=== PATIENT | male | born 1995 | race Caucasian/White ===

== ENCOUNTER 2020-12-03 18:47 | Emergency (ER) | payer OTHER ==
--- NOTE | 2020-12-03 20:26 | CR ---
INDICATION: Thumb laceration TECHNIQUE: Finger radiograph 3 views left 1st COMPARISON: None FINDINGS: Bone: There is an incomplete laceration injury involving the cortex the 1st proximal phalanx. Linear laceration defect is seen along the base of the 1st digit with punctate scattered densities which may be due to foreign bodies. Joint: The metacarpophalangeal and interphalangeal joints are normal in appearance. Soft tissue: Unremarkable. IMPRESSIONS: 1. There is an incomplete laceration injury involving the cortex the 1st proximal phalanx. 2. Linear laceration defect is seen along the base of the 1st digit with punctate scattered densities which may be due to foreign bodies. Dictated by Zac Martínez MD @ 12/03/2020 8:19:33 PM Dictated by: Zac Martínez MD @ 12/03/2020 20:24:33 (Electronically Signed)
[2020-12-03] MEDS ORDERED: Diphtheria,Pertussis(Acell),Tetanus Vaccine 0.5 ML Syringe IM ONE (20:37)
--- NOTE | 2020-12-03 21:18 | EDM.PDOC ---
ED HPI GENERAL MEDICAL PROBLEM - General Chief Complaint: Upper Extremity Injury/Pain Stated Complaint: LACARATED FINGER Time Seen by Provider: 12/03/20 18:52 Source of Information: Reports: Patient History Limitations: Reports: No Limitations - History of Present Illness INITIAL COMMENTS - FREE TEXT/NARRATIVE: HISTORY AND PHYSICAL: History of present illness: Patient is a 25-year-old male who presents emergency department secondary to a laceration to his left thumb he sustained just prior to arrival to the emergency department. Patient reports that he was using a wire wheeler to work on a garage door and reports that he slipped and the graphite grinder ran across his thumb. Patient states that he wrapped the area but did not clean it out. Patient states he is right-hand dominant. Patient is unsure of his tetanus status but believes he is out of date. Patient denies fever, chills, chest pain, shortness of breath, or cough. Denies headache, neck stiff ness, change in vision, syncope, or near syncope. Denies nausea, vomiting, abdominal pain, diarrhea, constipation, or dysuria. Has not noted any blood in urine or stool. Patient has been eating and drinking appropriately. Review of systems: As per history of present illness and below otherwise all systems reviewed and negative. Past medical history: As per history of present illness and as reviewed below otherwise noncontributory. Surgical history: As per history of present illness and as reviewed below otherwise noncontributory. Social history: See social history for further information Family history: As per history of present illness and as reviewed below otherwise noncontributory. Physical exam: General: Patient is alert, oriented, and in no acute distress. Patient sitting comfortably on exam table. Patient's vitals are stable and reviewed by me. HEENT: Atraumatic, normocephalic, pupils equal and reactive bilaterally, negative for conjunctival pallor or scleral icterus, mucous membranes moist, TMs normal bilaterally, throat clear, neck supple, nontender, trachea midline. No drooling or trismus noted. No meningeal signs. No hot potato voice noted. Lungs: Clear to auscultation, breath sounds equal bilaterally, chest nontender. Heart: S1S2, regular rate and rhythm without overt murmur Abdomen: Soft, nondistended, nontender. Negative for masses or hepatosplenomegaly. Negative for costovertebral tenderness. Pelvis: Stable nontender. Genitourinary: Deferred. Rectal: Deferred. Skin: Intact, warm, dry. No lesions or rashes noted. Extremities: The patient's left thumb has a 4 cm laceration across the dorsal aspect of the midshaft of the proximal phalanx. There is a incomplete laceration to the tendon sheath of the extensor tendon of the thumb; not cutting through the tendon. Patient has full active and passive range of motion in the thumb, capillary refill less than 2 seconds with intact sensation of the complete LUE. Otherwise atraumatic, negative for cords or calf pain. Neurovascular unremarkable. Neuro: Awake, alert, oriented. Cranial nerves II through XII unremarkable. Cerebellum unremarkable. Motor and sensory unremarkable throughout. Exam nonfocal. Notes: X-ray shows there is an incomplete laceration injury involving the cortex of the first proximal phalanx. Linear laceration defect is seen along the base of the first digit with punctate scattered densities which may be due to foreign bodies; did not appreciate fb on extensive cleaning / irrigation of laceration. Discussed with patient signs and symptoms that would prompt return to the emergency department. Discussed with patient the importance of follow-up with primary care and hand specialist. Voices understanding and is agreeable to plan of care. Denies any further questions or concerns at this time. Diagnostics: X-ray 2 view left thumb Therapeutics: Irrigation, sutures, tetanus update, thumb splint placed by nursing staff Prescription: Keflex Impression: Left thumb injury / laceration Plan: 1. Take medication as prescribed. You can alternate ibuprofen and Tylenol as directed for pain and discomfort. 2. Follow-up with a hand specialist as discussed. Return to the ED as needed and as discussed. 3. Keep splint on until evaluation by the hand specialist. 4. Keep the area clean and dry. Continue to monitor for signs of infection as discussed. Sutures to be removed in 7-10 days. Definitive disposition and diagnosis as appropriate pending reevaluation and review of above. L thumb Pain Score (Numeric/FACES): 7 - Related Data Allergies Allergy/AdvReac Type Severity Reaction Status Date / Time aspirin Allergy Other Verified 12/03/20 19:49 Home Meds: Home Meds cephALEXin [Keflex] 500 mg PO BID 10 Days #20 cap 12/03/20 [Rx] Past Medical History - Infectious Disease History Infectious Disease History: Reports: Chicken Pox - Past Surgical History HEENT Surgical History: Reports: Adenoidectomy, Tonsillectomy Social & Family History - Tobacco Use Tobacco Use Status *Q: Current Every Day Tobacco User Years of Tobacco use: 2 Packs/Tins Daily: 1 - Recreational Drug Use Recreational Drug Use: No Review of Systems - Review of Systems Review Of Systems: Comprehensive ROS is negative, except as noted in HPI. ED EXAM, GENERAL - Physical Exam Exam: See Below (see dictation) ED TRAUMA EXTREMITY PROCEDURES - Laceration/Wound Repair Left Proximal Dorsal Digit - 1st (Thumb) Lac/Wound Length In cm: 4 (Suturing performed by PA student Chong Gallegos observed and supervised directly by me.) Appearance: Subcutaneous, Linear, Mildly Contaminated Distal NVT: Neuro & Vascular Intact Anesthetic Type: Digital Local Anesthesia - Lidocaine (Xylocaine): 1% Plain Local Anesthetic Volume: Other (8cc) Skin Prep: Chlorhexidine (Hibiciens), Saline Saline Irrigation (cc's): 500 Exploration/Debridement/Repair: Wound Explored, In a Bloodless Field, Explored to Base, No Foreign Material Found Closed With: Sutures Suture Size: 4-0 # of Sutures: 9 Suture Type: Nylon, Interrupted Drain Placement: No Sterile Dressing Applied: Nurse Tetanus Status Addressed: Yes Complications: No Course - Vital Signs Last Recorded V/S: Last Vital Signs Temp 96.5 F L 12/03/20 19:46 Pulse 55 L 12/03/20 19:46 Resp 16 12/03/20 19:46 BP 109/69 12/03/20 19:46 Pulse Ox 98 12/03/20 19:46 - Orders/Labs/Meds Orders: Active Orders 24 hr Category Date Time Status Vaccines to be Administered [RC] PER UNIT ROUTINE Care 12/03/20 20:37 Active DME for Discharge [COMM] Stat Oth 12/03/20 21:19 Ordered Meds: Medications Discontinued Medications Generic Name Dose Route Start Last Admin Trade Name Freq PRN Reason Stop Dose Admin Diphtheria/Tetanus/Acell Pertussis 0.5 ml 12/03/20 20:37 12/03/20 20:44 Diphtheria,Pertussis(Acell),Tetanus Vaccine 0.5 Ml Syringe IM 12/03/20 20:38 0.5 ml .ONCE ONE Administration Lidocaine HCl 10 ml 12/03/20 19:53 12/03/20 20:05 Lidocaine 1% 5 Ml Sdv INJECT 12/03/20 19:54 10 ml ONETIME ONE Administration Departure - Departure Time of Disposition: 21:16 Disposition: Home, Self-Care 01 Clinical Impression: Thumb laceration Qualifiers: Encounter type: initial encounter Damage to nail status: without damage Foreign body presence: without foreign body Laterality: left Qualified Code(s): S61.012A - Laceration without foreign body of left thumb without damage to nail, initial encounter - Discharge Information Prescriptions: cephALEXin [Keflex] 500 mg PO BID 10 Days #20 cap Referrals: PCP,Not In Area [Primary Care Provider] - Forms: ED Department Discharge Additional Instructions: The following information is given to patients seen in the emergency department who are being discharged to home. This information is to outline your options for follow-up care. We provide all patients seen in our emergency department with a follow-up referral. The need for follow-up, as well as the timing and circumstances, are variable depending upon the specifics of your emergency department visit. If you don't have a primary care physician on staff, we will provide you with a referral. We always advise you to contact your personal physician following an emergency department visit to inform them of the circumstance of the visit and for follow-up with them and/or the need for any referrals to a consulting specialist. The emergency department will also refer you to a specialist when appropriate. This referral assures that you have the opportunity for follow-up care with a specialist. All of these measure are taken in an effort to provide you with optimal care, which includes your follow-up. Under all circumstances we always encourage you to contact your private physician who remains a resource for coordinating your care. When calling for follow-up care, please make the office aware that this follow-up is from your recent emergency room visit. If for any reason you are refused follow-up, please contact the [facility] Emergency Department at and asked to speak to the emergency department charge nurse. [facility] [address] [place] [id number] [address] [facility], Hand and Wrist Surgery, Dr. Thomas [address] [place], [place] [address]elie LocoBRISEIDA [id number] PH: [phone] 1. Take medication as prescribed. You can alternate ibuprofen and Tylenol as directed for pain and discomfort. 2. Follow-up with a hand specialist as discussed. Return to the ED as needed and as discussed. 3. Keep splint on until evaluation by the hand specialist. 4. Keep the area clean and dry. Continue to monitor for signs of infection as discussed. Sutures to be removed in 7-10 days. Sepsis Event Note (ED) - Evaluation Sepsis Screening Result: No Definite Risk - Focused Exam Vital Signs: Vital Signs Temp Pulse Resp BP Pulse Ox 12/03/20 19:46 96.5 F L 55 L 16 109/69 98 - My Orders Last 24 Hours: My Active Orders 12/03/20 20:37 Vaccines to be Administered [RC] PER UNIT ROUTINE 12/03/20 21:19 DME for Discharge [COMM] Stat - Assessment/Plan Last 24 Hours: My Active Orders 12/03/20 20:37 Vaccines to be Administered [RC] PER UNIT ROUTINE 12/03/20 21:19 DME for Discharge [COMM] Stat
[2020-12-03] MEDS ORDERED: Cephalexin 500 MG Cap PO ONE (22:27)
[2020-12-03] MEDS ORDERED: Cephalexin 500 MG Cap ONE (22:28)
== END 2020-12-03 22:27 | disposition home or self-care (01) ==
LOC: MW.ED 18:47
DX: S61.012A Laceration without foreign body of left thumb without damage to nail, initial encounter (principal); Z72.0 Tobacco use; Z23 Encounter for immunization; Z88.8 Allergy status to other drugs, medicaments and biological substances; W26.8XXA Contact with other sharp object(s), not elsewhere classified, initial encounter; Y99.0 Civilian activity done for income or pay
CPT/HCPCS: 12002; 73140; 90471; 90715; 99283; A9270

== ENCOUNTER 2021-07-21 08:03 | Emergency (ER) | payer OTHER, BC ==
[2021-07-21] MEDS ORDERED: Acetaminophen 500 MG Tab PO ONE (08:23)
[2021-07-21] MEDS ORDERED: Ketorolac 30 MG/ML SDV IM ONE (08:23)
[2021-07-21] MEDS ORDERED: Diazepam 5 MG Tab PO ONE (08:23)
== END 2021-07-21 09:50 | disposition home or self-care (01) ==
LOC: MW.ED 08:03
DX: S20.211A Contusion of right front wall of thorax, initial encounter (principal); Z88.6 Allergy status to analgesic agent; V88.9XXA Person injured in other specified (collision)(noncollision) transport accidents involving nonmotor vehicle, nontraffic, initial encounter
CPT/HCPCS: 71101; 96372; 99283; A9270; J1885